=== PATIENT | female | born 1985 | race Hispanic/Latino ===

== ENCOUNTER 2025-01-22 20:47 | Emergency (ER) | payer OTHER, SELFPAY ==
[2025-01-22 20:49] VITALS: BP 161/108
--- NOTE | 2025-01-22 21:59 | ED.GENMED ---
History of Present Illness
<Ramonita Alberto MD, Resident - Last Filed: 01/22/25 22:25>
General
Chief Complaint: Allergic Reaction
Source: patient and family
Time Seen by Provider: 01/22/25 21:59
History of Present Illness
History of Present Illness:
39-year-old female with no significant past medical history comes to the ED due to recent insect sting/bite. She was sitting on her patio outside when she was stung around multiple areas including her bilateral hands, thighs and back. She has some
mild swelling in her fingers around the areas of stinging with some mild tenderness to palpation. She has no difficulty breathing and has no concurrent chest pain, fever or chills. Did not try any pain medication to help with the pain or any
kewl-[id number]-[id number] allergy medications like Benadryl. Says she has some mild allergies to latex but has not had any hives in the past.
Past History
<Ramonita Alberto MD, Resident - Last Filed: 01/22/25 22:25>
Past History
ED Past Medical History: None
ED Past Surgical History: None
Review of Systems
<Ramonita Alberto MD, Resident - Last Filed: 01/22/25 22:25>
Review of Systems
Constitutional: Reports no symptoms
EENT: Reports no symptoms
Respiratory: Reports no symptoms
Cardiac: Reports no symptoms
ABD/GI: Reports no symptoms
: Reports no symptoms
Musculoskeletal: Reports edema (Mild swelling in areas of sting, mainly on fingers)
Skin: Reports itching and rash
Neurological: Reports no symptoms
Endocrine: Reports no symptoms
Hematologic/Lymphatic: Reports no symptoms
Psychiatric: Reports no symptoms
Phy Exam
<Ramonita Alberto MD, Resident - Last Filed: 01/22/25 22:25>
General Physical Exam
General Presentation: well appearing and no apparent distress
General Skin: warm and dry
General Habitus: normal
General Mental: alert
General Hydration: appears well hydrated
Cardiovascular Exam
Cardiovascular Exam: regular rate/rhythm, no edema and no murmur
Pulmonary Exam
Pulmonary Exam: lungs clear, no respiratory distress, no crackles and no wheezing
Gastrointestinal Exam
Gastrointestinal Exam: normal bowel sounds, non tender, soft and non distended
Musculoskeletal Exam
Musculoskeletal Exam: other (Mild swelling in areas of insect sting on bilateral hands, 2 stings noticed on fingers)
Skin Exam
Skin Exam: other (3 to 4 cm area of erythema/rash noticed on her left upper back. Insect sting locations include bilateral hands, bilateral thighs, upper left back)
Course
<Ramonita Alberto MD, Resident - Last Filed: 01/22/25 22:25>
Orders/Labs/Results
Orders:
Orders
01/22/25 22:08
Diphenhydramine [Benadryl] 25 mg PO NOW STA
01/22/25 22:13
Prednisone [Deltasone] 50 mg PO NOW STA
Vital Signs
Initial and Last Documented VS:
Initial Vital Signs
Temp Pulse Resp BP Pulse Ox
98.0 F 88 20 161/108 97
01/22/25 20:49 01/22/25 20:49 01/22/25 20:49 01/22/25 20:49 01/22/25 20:49
Last Documented Vital Signs
Temp Pulse Resp BP Pulse Ox
98.0 F 56 18 126/68 100
01/22/25 20:49 01/22/25 22:21 01/22/25 22:21 01/22/25 22:21 01/22/25 22:21
<Isabela Gardner DO - Last Filed: 01/22/25 22:40>
Orders/Labs/Results
Orders:
Orders
01/22/25 22:08
Diphenhydramine [Benadryl] 25 mg PO NOW STA
01/22/25 22:13
Prednisone [Deltasone] 50 mg PO NOW STA
Vital Signs
Initial and Last Documented VS:
Initial Vital Signs
Temp Pulse Resp BP Pulse Ox
98.0 F 88 20 161/108 97
01/22/25 20:49 01/22/25 20:49 01/22/25 20:49 01/22/25 20:49 01/22/25 20:49
Last Documented Vital Signs
Temp Pulse Resp BP Pulse Ox
98.0 F 56 18 126/68 100
01/22/25 20:49 01/22/25 22:21 01/22/25 22:21 01/22/25 22:21 01/22/25 22:21
<Ramonita lAberto MD, Resident - Last Filed: 01/22/25 22:25>
MDM/Problems Addressed
Differential Diagnosis Includes:
Insect sting
MDM/Problems Addressed:
39-year-old female with no significant past medical history comes to the ED following insect bite/sting.
No difficulty breathing, areas affected by insect sting and now very swollen
Will give her some Benadryl and prednisone
Will discharge on prednisone to take for 5 days in total. Will crisis intervention counselor to take daily benadryl and over the counter pain medication such as ibuprofen for tenderness
<Ramonita Alberto MD, Resident - Last Filed: 01/22/25 22:25>
*Pulse Oximetry
SaO2: 97
Oxygen Mode of Delivery: Room air
Patient hypoxic: no
*Critical Care Note
Total Time (30-74mins, 75-104mins- exclusive of procedures): Not Applicable
ED Attending Note
<Ramonita Alberto MD, Resident - Last Filed: 01/22/25 22:25>
-
Portions of this chart may have been created with voice recognition software.� Occasional wrong word or��sound alike� substitutions may have occurred due to the inherent limitations of voice recognition software.
<Isabela Gardner DO - Last Filed: 01/22/25 22:40>
ED Attending Note
Patient seen and examined by attending physician: Yes
I performed the substantive portion of visit, reviewed & personally made and approve the management plan that is documented in note by myself or IRVIN.: Yes
ED Attending Note:
This is a 39-year-old woman with no significant past medical history, takes no medicines on a daily basis. She presents this evening with her sister after being stung multiple times by what she believes was a wasp. Insect stings occurred just
prior to arrival while she was sitting out on her porch. Initially noted acute pain, insect sting like pain to bilateral dorsal hands and then went inside when she discovered the wasp was on her left upper back/shoulder region and while attempting
to take her shirt off overhead the wasp stung her left upper back region. She complains of local pain and mild redness to focal area of left upper scapular back region, bilateral dorsal hands as well as in 2 small areas bilateral anterior thighs.
She believes it was just 1 wasp that stung her but unsure. No history of similar episodes in the past.
She denies generalized rash, denies cough nor shortness of breath, no facial nor throat swelling, no abdominal pain, no nausea nor vomiting.
Last menstrual period 2 weeks ago, normal and on time. Denies risk of .
She has not taken anything for her symptoms.
39-year-old woman appears her stated age, bright and alert, pleasant, appears in no acute distress. Moderate hypertension noted initially, has normalized upon recheck. Vital signs otherwise within normal limits.
Exam notable for small focal areas of erythema with minimal soft tissue swelling dorsal hands, left upper back, bilateral anterior thighs.
There is no angioedema.
Lungs are clear to auscultation. Respirations are easy and nonlabored.
Abdomen is soft without appreciable tenderness.
History and exam consistent with multiple hymenoptera stings with mild local reaction. Nothing in history nor exam to suggest anaphylaxis nor generalized reaction.
Will treat mild local sting reaction with a short course of prednisone as well as antihistamine. Will give a dose of prednisone and Benadryl now.
Recommend topical [id number] hydrocortisone cream for as needed itch, swelling. Recommend initiation of a short course of Claritin versus Zyrtec once daily and along with this if itching, swelling worsen may take Benadryl 50 mg 3-4 times
daily as needed.
Prompt follow-up with PCP for recheck.
Return precautions discussed.
Discharge Plan
Departure
Patient Disposition: Home (Routine Discharge)
Date of Disposition: 01/22/25
Time of Disposition: 22:20
Patient with high blood pressure during this ER visit?: Yes
Condition: Good
Covid-19: Not Applicable
Discharge Problem:
Bites and stings, insect
Instructions: Insect bites and stings - ED discharge instructions, BLOOD PRESSURE
Prescriptions:
New
prednisone 50 mg tablet
50 mg PO DAILY 4 Days Qty: 4 0RF
Activity Restrictions/Additional Instructions:
Continue taking Prednisone for 4 more days, medication has been sent to your pharmacy
Please return to the ED if your symptoms worsen or if you have any trouble breathing/develop any heart palpitations/pain or fever
Please take Benadryl over the counter and Ibuprofen/Tylenol for any pain
Interventions
Interventions:
*Risk Screen - Suicide Last Done: 01/22/25 22:22
*General Assessment Last Done: 01/22/25 20:49
*Neglect/Abuse Screening Last Done: 01/22/25 22:22
*ED- Fall Risk Assessment Last Done: 01/22/25 22:22
*ED COVID-19 Vaccine History Last Done: 01/22/25 22:22
*Nursing Disposition Last Done: 01/22/25 22:25
ED- Cardiac Assessment Last Done: 01/22/25 22:22
ED- Pulmonary Assessment Last Done: 01/22/25 22:22
ED-Skin Assessment Last Done: 01/22/25 22:22
Discharge Date and Time
Discharge Date/Time: 01/22/25 22:26
Print Language: NIGERIAN
[2025-01-22] MEDS: BENADRYL 25 MG PO (22:15)
[2025-01-22] MEDS: DELTASONE 50 MG PO (22:15)
[2025-01-22 22:21] VITALS: BP 126/68
== END 2025-01-22 22:26 | disposition home or self-care (01) ==
LOC: EMR 20:47
PROVIDERS: EMERGENCY PHYSICIAN Emergency Medicine; FAMILY PHYSICIAN Internal Medicine
DX: T78.40XA Allergy, unspecified, initial encounter (principal); W57.XXXA Bitten or stung by nonvenomous insect and other nonvenomous arthropods, initial encounter; I10 Essential (primary) hypertension
CPT/HCPCS: 99282